=== PATIENT | female | born 1985 ===

== ENCOUNTER 2020-10-30 03:32 | Emergency (ER) ==
[~2020-10-30] VITALS: Ht 162.6 cm; Wt 54.5 kg
[2020-10-30 03:35] VITALS: BP 96/79
[2020-10-30 04:30] LABS: BASOPHILS # (AUTO) 0.1 X10'3 (0-0.2); BASOPHILS % (AUTO) 1.2 % (0-1); EOSINOPHILS % (AUTO) 0.3 % (0-6); HEMATOCRIT 36.8 % (35.0-45.0); HEMOGLOBIN 12.2 g/dl (12.0-16.0); LYMPHOCYTES # (AUTO) 1.8 X10'3 (1.1-4.8); LYMPHOCYTES % (AUTO) 19.1 % (21-51); MEAN CORPUSCULAR HEMOGLOBIN 29.3 PG (27.0-31.0); MEAN CORPUSCULAR HGB CONC 33.2 g/dL (33.0-36.5); MEAN CORPUSCULAR VOLUME 88.4 FL (78-98); MEAN PLATELET VOLUME 8.5 FL (7.4-10.4); MONOCYTES # (AUTO) 0.8 X10'3 (0-0.9); NEUTROPHILS # (AUTO) 6.5 X10'3 (1.8-7.7); NEUTROPHILS % (AUTO) 70.4 % (42-75); PLATELET COUNT 290 X10'3 (140-440); RED BLOOD COUNT 4.17 X10'6 (4.20-5.60); RED CELL DISTRIBUTION WIDTH 16.4 % (11.5-14.5); WHITE BLOOD COUNT 9.3 X10'3 (4.5-11.0)
[2020-10-30 04:31] LABS: CLARITY,URINE SLIGHTLY CLOUDY (Clear); COLOR,URINE YELLOW (Yellow); GLUCOSE, URINE NEGATIVE (Neg); KETONES,URINE NEGATIVE (Neg); LEUKOCYTE ESTERASE ,URINE TRACE (Neg); NITRITES, URINE NEGATIVE (Neg); OCCULT BLOOD,URINE NEGATIVE (Neg); PROTEIN,URINE 30 mg/dl (Neg)
[2020-10-30 04:35] LABS: URINE HCG NEGATIVE (NEG)
--- NOTE | 2020-10-30 04:36 | NUR ---
PT UPDATED TO PLAN OF CARE AND AGREEABLE. LYING IN BED WITH BLANKET. NO FURTHER NEEDS AT THIS TIME. RR EVEN AND UNLABORED. WITHIN LINE OF SIGHT. WILL CONTINUE TO MONITOR
[2020-10-30 04:44] LABS: URINE AMPHETAMINE SCREEN POSITIVE (Neg); URINE BARBITUATE SCREEN NEGATIVE (Neg); URINE BENZODIAZEPINES SCREEN NEGATIVE (Neg); URINE CANNABINOID SCREEN POSITIVE (Neg); URINE COCAINE SCREEN NEGATIVE (Neg); URINE METHADONE SCREEN NEGATIVE (Neg); URINE OPIATE SCREEN NEGATIVE (Neg); URINE PHENCYCLIDINE SCREEN NEGATIVE (Neg)
[2020-10-30 04:45] LABS: ALANINE AMINOTRANSFERASE 35 U/L (12-78); ALBUMIN 4.3 G/DL (3.4-5.0); ALBUMIN/GLOBULIN RATIO 1.3 (1.1-1.5); ALKALINE PHOSPHATASE 76 IU/L (46-116); ANION GAP 8 (8-16); ASPARTATE AMINO TRANSFERASE 40 U/L (10-37); BILIRUBIN,TOTAL 0.3 MG/DL (0.1-1.0); BLOOD UREA NITROGEN 9 MG/DL (7-18); BUN/CREATININE RATIO 9.7 (6.6-38.0); CALCIUM 9.3 MG/DL (8.5-10.1); CHLORIDE 107 MMOL/L (99-107); CREATININE 0.93 MG/DL (0.40-0.90); GLUCOSE 125 MG/DL (70-104); POTASSIUM 3.6 MMOL/L (3.5-5.1); SODIUM 144 MMOL/L (135-145); TOTAL CARBON DIOXIDE 28.6 MMOL/L (24-32); TOTAL PROTEIN 7.7 G/DL (6.4-8.2); eGFR 69 ML/MIN
[2020-10-30 04:49] LABS: UA COLLECTION TYPE CLN CATCH MIDSTREAM
[2020-10-30 04:52] LABS: BACTERIA,URINE FEW /HPF (Neg); MUCUS STRANDS MANY /LPF (Neg); RBC,URINE 0-2 /HPF (0-2); SQUAMOUS EPITHELIAL CELL,UR MODERATE /LPF (FEW)
[2020-10-30 04:53] LABS: AMORPHOUS URATES 2+
[2020-10-30 04:56] LABS: ETHANOL < 0.010 GM/DL (0.0-0.010)
--- NOTE | 2020-10-30 05:44 | NUR ---
PT LYING ON RIGHT SIDE, AWAKE. NO NEEDS AT THIS TIME. WILL CONTINUE TO MONITOR
--- NOTE | 2020-10-30 07:02 | NUR ---
PACKET FAXED TO [facility]
--- NOTE | 2020-10-30 09:14 | NUR ---
pt walked over from main er to overflow 25 with tech
--- NOTE | 2020-10-30 09:26 | NUR ---
[facility] [place]la [phone]
--- NOTE | 2020-10-30 09:28 | NUR ---
pt does not know the name of medication she is suppose to take. atttempted to call mom for med rec and phone is disconnected
--- NOTE | 2020-10-30 09:54 | NUR ---
Patient appears to be resting comfortably. No apparent s/s of distress noted
--- NOTE | 2020-10-30 10:00 | NUR ---
faxed [facility] for medical records
[2020-10-30] MEDS ORDERED: haloperidol lactate 5mg/ml inj IM SCH (10:50)
--- NOTE | 2020-10-30 11:00 | NUR ---
Patient appears to be resting comfortably. No apparent s/s of distress noted
--- NOTE | 2020-10-30 12:00 | NUR ---
Patient appears to be resting comfortably. No apparent s/s of distress noted
[2020-10-30] MEDS ORDERED: NO HOME MEDS (16:52)
== END 2020-10-30 15:08 ==
LOC: ER 03:33
DX: F20.9 Schizophrenia, unspecified (principal); F15.10 Other stimulant abuse, uncomplicated; F12.10 Cannabis abuse, uncomplicated; N28.9 Disorder of kidney and ureter, unspecified
CPT/HCPCS: 36415; 80053; 80305; 80320; 81001; 81025; 84443; 85025; 96372; 99285; J1630